=== PATIENT | male | born 1985 | race American Indian/Alaskan Native ===

== ENCOUNTER 2019-05-12 13:58 | Emergency (ER) | payer MEDICAID, OTHER ==
--- NOTE | 2019-05-12 14:21 | EDM.PDOC ---
ED HPI GENERAL MEDICAL PROBLEM - General Chief Complaint: Upper Extremity Injury/Pain Stated Complaint: AMBULANCE Time Seen by Provider: 05/12/19 14:00 Source of Information: Reports: Patient History Limitations: Reports: No Limitations - History of Present Illness INITIAL COMMENTS - FREE TEXT/NARRATIVE: This 34 yo male patient was sent to the ED by [facility] from the [facility] due to right wrist and hand pain. The patient reports he punched a wall last night at about 2200. The patient reports he woke up in increased pain. The patient was given an injection of Toradol while in the [facility] and placed in a sling for support. The patient reports increased pain in his wrist and the inability to straighten out his wrist at this time. 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 [No Known Home Meds] 12/15/15 [History] Past Medical History - Past Health History Medical/Surgical History: Denies Medical/Surgical History Social & Family History - Tobacco Use Smoking Status *Q: Current Every Day Smoker Years of Tobacco use: 12 Packs/Tins Daily: 1 - Recreational Drug Use Recreational Drug Use: No Review of Systems - Review of Systems Review Of Systems: ROS reveals no pertinent complaints other than HPI. ED EXAM, GENERAL - Physical Exam Exam: See Below Exam Limited By: No Limitations General Appearance: Alert, WD/WN, Moderate Distress Eye Exam: Bilateral Eye: EOMI, Normal Inspection, PERRL Ears: Normal External Exam, Normal Canal, Hearing Grossly Normal, Normal TMs Nose: Normal Inspection, Normal Mucosa, No Blood Throat/Mouth: Normal Inspection, Normal Lips, Normal Teeth, Normal Gums, Normal Oropharynx, Normal Voice, No Airway Compromise Head: Atraumatic, Normocephalic Neck: Normal Inspection, Supple, Non-Tender, Full Range of Motion Respiratory/Chest: No Respiratory Distress, Lungs Clear, Normal Breath Sounds, No Accessory Muscle Use, Chest Non-Tender Cardiovascular: Normal Peripheral Pulses, Regular Rate, Rhythm, No Edema, No Gallop, No JVD, No Murmur, No Rub GI/Abdominal: Normal Bowel Sounds, Soft, Non-Tender, No Organomegaly, No Distention, No Abnormal Bruit, No Mass (Male) Exam: Deferred Rectal (Males) Exam: Deferred Back Exam: Normal Inspection, Full Range of Motion, NT Extremities: Arm Pain (right wrist pain with swelling) Neurological: Alert, Oriented, CN II-XII Intact, Normal Cognition, Normal Gait, Normal Reflexes, No Motor/Sensory Deficits Psychiatric: Normal Affect, Normal Mood Skin Exam: Warm, Dry, Intact, Normal Color, No Rash Lymphatic: No Adenopathy Course - Vital Signs Last Recorded V/S: Last Vital Signs Temp 37.3 C 05/12/19 13:56 Pulse 97 05/12/19 13:56 Resp 16 05/12/19 13:56 BP 125/86 05/12/19 13:56 Pulse Ox 96 05/12/19 13:56 - Radiology Interpretation Free Text/Narrative:: No fracture and no dislocation read by Dr. Crocker. Departure - Departure Time of Disposition: 14:36 Disposition: Home, Self-Care 01 Condition: Fair Clinical Impression: Strain of right wrist Qualifiers: Encounter type: initial encounter Qualified Code(s): S66.911A - Strain of unspecified muscle, fascia and tendon at wrist and hand level, right hand, initial encounter - Discharge Information *PRESCRIPTION DRUG MONITORING PROGRAM REVIEWED*: Not Applicable *COPY OF PRESCRIPTION DRUG MONITORING REPORT IN PATIENT TAMI: Not Applicable Instructions: Wrist Splint, Adult, [id number], Wrist Sprain, Adult Forms: ED Department Discharge Care Plan Goals: The patient was advised of the examination and x-ray results during the visit. The patient was placed in a manufactured splint for his right wrist during the visit. If the patient has any additional symptoms or concerns, the patient should either return to the emergency department or visit his primary care facility.
--- NOTE | 2019-05-12 14:34 | CR ---
Clinical history: 34-year-old inebriated male who presents with flexion deformity right wrist, after "punching a wall". Interpretation: AP lateral views of the right wrist (identical comparisons contralateral, asymptomatic, left wrist). No sign of acute right wrist fracture or dislocation. Apparent old healed "boxer's" fracture deformities distal end of the fifth metacarpals, both hands. No foreign bodies.
== END 2019-05-12 15:00 | disposition home or self-care (01) ==
LOC: DL.ED 13:58
DX: S66.911A Strain of unspecified muscle, fascia and tendon at wrist and hand level, right hand, initial encounter (principal); F17.210 Nicotine dependence, cigarettes, uncomplicated; Z88.0 Allergy status to penicillin; W22.01XA Walked into wall, initial encounter
CPT/HCPCS: 73100-50; 99284-25

== ENCOUNTER 2019-08-07 16:24 | Emergency (ER) | payer MEDICAID ==
[2019-08-07] MEDS ORDERED: Sodium Chloride 0.9% 10 ML Syringe FLUSH PRN (16:29)
[2019-08-07] MEDS ORDERED: Sodium Chloride 0.9% 1,000 ML IV ONE ×2 (16:30→17:44)
--- NOTE | 2019-08-07 16:35 | EDM.PDOC ---
ED HPI GENERAL MEDICAL PROBLEM - General Chief Complaint: Possible Sepsis Time Seen by Provider: 08/07/19 16:34 Source of Information: Reports: Patient, EMS, EMS Notes Reviewed, Family, RN, RN Notes Reviewed History Limitations: Reports: Other (lethargy) - History of Present Illness INITIAL COMMENTS - FREE TEXT/NARRATIVE: Pt to ER per [facility] with c/o fever that began this AM. Pain to head/neck, generalized body aches. Denies health problems, denies drug or alcohol use. Admits to chest pains, SOB, nausea, vomiting, fever, chills, generalized body aches. Denies recent illness, cough, diarrhea. Denies any open sores. Onset: Today, Sudden - Related Data Allergies Allergy/AdvReac Type Severity Reaction Status Date / Time Penicillins Allergy Cannot Verified 05/12/19 14:08 Remember Home Meds: Home Meds . [No Known Home Meds] 12/15/15 [History] Past Medical History - Past Health History Medical/Surgical History: Denies Medical/Surgical History ED ROS GENERAL - Review of Systems Review Of Systems: ROS reveals no pertinent complaints other than HPI. ED EXAM, GENERAL - Physical Exam Exam: See Below Exam Limited By: Other (lethargy) General Appearance: Lethargic, Mild Distress Eye Exam: Bilateral Eye: EOMI, Normal Inspection Ears: Normal External Exam, Hearing Grossly Normal Nose: Normal Inspection Throat/Mouth: Normal Inspection, Normal Voice, No Airway Compromise Head: Atraumatic, Normocephalic Neck: Normal Inspection, Supple, Non-Tender, Full Range of Motion Respiratory/Chest: No Respiratory Distress, Lungs Clear, Normal Breath Sounds, No Accessory Muscle Use, Chest Non-Tender Cardiovascular: Normal Peripheral Pulses, Regular Rate, Rhythm, No Edema, No Gallop, No JVD, No Murmur, No Rub Peripheral Pulses: 2+: Radial (L), Radial (R) GI/Abdominal: Normal Bowel Sounds, Soft, Non-Tender, No Organomegaly, No Distention, No Abnormal Bruit, No Mass (Male) Exam: Deferred Rectal (Males) Exam: Deferred Back Exam: Normal Inspection, Full Range of Motion, NT Extremities: Normal Inspection, Normal Range of Motion, Non-Tender, Normal Capillary Refill, No Pedal Edema Neurological: Alert, Oriented, CN II-XII Intact, Normal Cognition, No Motor/ Sensory Deficits Psychiatric: Flat Affect Skin Exam: Warm, Dry, Intact, Normal Color, No Rash Lymphatic: No Adenopathy Course - Vital Signs Last Recorded V/S: Last Vital Signs Temp 99.3 F 08/07/19 18:14 Pulse 113 H 08/07/19 16:27 Resp 28 H 08/07/19 16:27 BP 107/61 08/07/19 16:27 Pulse Ox 96 08/07/19 16:27 - Orders/Labs/Meds Orders: Active Orders 24 hr Category Date Time Status Peripheral IV Care [RC] . DIRECTED Care 08/07/19 16:30 Active Chest 1V Frontal [CR] Stat Exams 08/07/19 16:29 Taken CULTURE BLOOD [BC] Stat Lab 08/07/19 16:34 Received CULTURE BLOOD [BC] Stat Lab 08/07/19 17:39 Received CULTURE STREP A CONFIRMATION [RM] Stat Lab 08/07/19 16:43 Results STREP SCRN A RAPID W CULT CONF [RM] Stat Lab 08/07/19 16:43 Results Sodium Chloride 0.9% [Saline Flush] Med 08/07/19 16:29 Active 10 ml FLUSH ASDIRECTED PRN Blood Culture x2 Reflex Set [OM.PC] Stat Oth 08/07/19 16:30 Ordered Peripheral IV Insertion Adult [OM.PC] Stat Oth 08/07/19 16:29 Ordered Medication Orders Sodium Chloride (Saline Flush) 10 ml FLUSH ASDIRECTED PRN PRN Reason: Keep Vein Open Last Admin: 08/07/19 17:31 Dose: 10 ml Labs: Laboratory Tests 08/07/19 08/07/19 08/07/19 Range/Units 16:34 16:34 16:34 WBC 5.7 (5.0-10.0) 10^3/uL RBC 4.23 L (4.6-6.2) 10^6/uL Hgb 13.1 L (14.0-18.0) g/dL Hct 39.5 L (40.0-54.0) % MCV 93.4 (80-100) fL MCH 31.0 (27.0-34.0) pg MCHC 33.2 (33.0-35.0) g/dL Plt Count 177 (150-450) 10^3/uL Neut % (Auto) 95.6 H (42.2-75.2) % Lymph % (Auto) 3.4 L (20.5-50.1) % Spalding % (Auto) 0.4 L (2-8) % Eos % (Auto) 0.4 L (1.0-3.0) % Baso % (Auto) 0.2 (0.0-1.0) % ESR 6 (0-15) mm/hr Sodium 139 (135-145) mmol/L Potassium 3.1 L (3.6-5.0) mmol/L Chloride 107 (101-111) mmol/L Carbon Dioxide 25.0 (21.0-31.0) mmol/L Anion Gap 10.1 BUN 12 (7-18) mg/dL Creatinine 0.9 (0.6-1.3) mg/dL Est Cr Clr Drug Dosing 84.30 mL/min Estimated GFR (MDRD) > 60 BUN/Creatinine Ratio 13.33 Glucose 101 (74-105) mg/dL Lactic Acid (0.5-2.2) mmol/L Calcium 8.2 L (8.4-10.2) mg/dl Total Bilirubin 1.0 (0.2-1.0) mg/dL AST 126 H (10-42) IU/L ALT 64 H (10-60) IU/L Alkaline Phosphatase 75 (42-121) IU/L C-Reactive Protein < 0.5 (0.0-1.3) mg/dL Total Protein 6.2 L (6.7-8.2) g/dl Albumin 3.3 (3.2-5.5) g/dl Globulin 2.9 Albumin/Globulin Ratio 1.14 Urine Color (YELLOW) Urine Appearance (CLEAR) Urine pH (5.0-9.0) Ur Specific Vaughn (1.005-1.030) Urine Protein (NEGATIVE) Urine Glucose (UA) (NEGATIVE) Urine Ketones (NEGATIVE) Urine Occult Blood (NEGATIVE) Urine Nitrite (NEGATIVE) Urine Bilirubin (NEGATIVE) Urine Urobilinogen (0.2-1.0) mg/dL Ur Leukocyte Esterase (NEGATIVE) Urine Opiates Screen (NEGATIVE) Ur Oxycodone Screen (NEGATIVE) Urine Methadone Screen (NEGATIVE) Ur Barbiturates Screen (NEGATIVE) U Tricyclic Antidepress (NEGATIVE) Ur Phencyclidine Scrn (NEGATIVE) Ur Amphetamine Screen (NEGATIVE) U Methamphetamines Scrn (NEGATIVE) Urine MDMA Screen (NEGATIVE) U Benzodiazepines Scrn (NEGATIVE) Urine Cocaine Screen (NEGATIVE) U Marijuana (THC) Screen (NEGATIVE) Ethyl Alcohol < 5 mg/dL 08/07/19 08/07/19 08/07/19 Range/Units 16:34 17:00 17:00 WBC (5.0-10.0) 10^3/uL RBC (4.6-6.2) 10^6/uL Hgb (14.0-18.0) g/dL Hct (40.0-54.0) % MCV (80-100) fL MCH (27.0-34.0) pg MCHC (33.0-35.0) g/dL Plt Count (150-450) 10^3/uL Neut % (Auto) (42.2-75.2) % Lymph % (Auto) (20.5-50.1) % Spalding % (Auto) (2-8) % Eos % (Auto) (1.0-3.0) % Baso % (Auto) (0.0-1.0) % ESR (0-15) mm/hr Sodium (135-145) mmol/L Potassium (3.6-5.0) mmol/L Chloride (101-111) mmol/L Carbon Dioxide (21.0-31.0) mmol/L Anion Gap BUN (7-18) mg/dL Creatinine (0.6-1.3) mg/dL Est Cr Clr Drug Dosing mL/min Estimated GFR (MDRD) BUN/Creatinine Ratio Glucose (74-105) mg/dL Lactic Acid 1.5 (0.5-2.2) mmol/L Calcium (8.4-10.2) mg/dl Total Bilirubin (0.2-1.0) mg/dL AST (10-42) IU/L ALT (10-60) IU/L Alkaline Phosphatase (42-121) IU/L C-Reactive Protein (0.0-1.3) mg/dL Total Protein (6.7-8.2) g/dl Albumin (3.2-5.5) g/dl Globulin Albumin/Globulin Ratio Urine Color Yellow (YELLOW) Urine Appearance Clear (CLEAR) Urine pH 6.0 (5.0-9.0) Ur Specific Vaughn 1.010 (1.005-1.030) Urine Protein Negative (NEGATIVE) Urine Glucose (UA) Negative (NEGATIVE) Urine Ketones Negative (NEGATIVE) Urine Occult Blood Negative (NEGATIVE) Urine Nitrite Negative (NEGATIVE) Urine Bilirubin Negative (NEGATIVE) Urine Urobilinogen 1.0 (0.2-1.0) mg/dL Ur Leukocyte Esterase Negative (NEGATIVE) Urine Opiates Screen Negative (NEGATIVE) Ur Oxycodone Screen Negative (NEGATIVE) Urine Methadone Screen Negative (NEGATIVE) Ur Barbiturates Screen Negative (NEGATIVE) U Tricyclic Antidepress Negative (NEGATIVE) Ur Phencyclidine Scrn Negative (NEGATIVE) Ur Amphetamine Screen Positive H (NEGATIVE) U Methamphetamines Scrn Positive H (NEGATIVE) Urine MDMA Screen Negative (NEGATIVE) U Benzodiazepines Scrn Negative (NEGATIVE) Urine Cocaine Screen Negative (NEGATIVE) U Marijuana (THC) Screen Negative (NEGATIVE) Ethyl Alcohol mg/dL Rapid Strep: Negative Influenza A & B: Negative Meds: Medications Generic Name Dose Route Start Last Admin Trade Name Freq PRN Reason Stop Dose Admin Sodium Chloride 10 ml 08/07/19 16:29 08/07/19 17:31 Saline Flush FLUSH 10 ml ASDIRECTED PRN Administration Keep Vein Open Discontinued Medications Generic Name Dose Route Start Last Admin Trade Name Freq PRN Reason Stop Dose Admin Sodium Chloride 1,000 mls @ 999 mls/hr 08/07/19 16:30 08/07/19 16:36 Normal Saline IV 08/07/19 17:30 999 mls/hr .BOLUS ONE Administration Sodium Chloride 1,000 mls @ 999 mls/hr 08/07/19 17:44 08/07/19 17:53 Normal Saline IV 08/07/19 18:44 999 mls/hr .BOLUS ONE Administration Ibuprofen 800 mg 08/07/19 17:05 08/07/19 17:14 Motrin PO 08/07/19 17:06 800 mg ONETIME ONE Administration Potassium Chloride 40 meq 08/07/19 17:44 08/07/19 17:55 Klor-Con 10 PO 08/07/19 17:45 40 meq ONETIME ONE Administration - Radiology Interpretation Free Text/Narrative:: Chest xray: FINDINGS: Lungs: Unremarkable. No consolidation. Pleural space: Unremarkable. No pleural effusion. No pneumothorax. Heart/Mediastinum: Unremarkable. No cardiomegaly. Bones/joints: Unremarkable. IMPRESSION: No acute findings. Thank you for allowing us to participate in the care of your patient. Dictated and Authenticated by: Kashif Davidson MD 08/07/2019 5:05 PM Central Time ([place] & [place]) See rad report Departure - Departure Time of Disposition: 18:46 Disposition: Home, Self-Care 01 Condition: Fair Clinical Impression: Viral illness - Discharge Information *PRESCRIPTION DRUG MONITORING PROGRAM REVIEWED*: No *COPY OF PRESCRIPTION DRUG MONITORING REPORT IN PATIENT TAMI: No Instructions: Viral Illness, Adult, Fever, Adult Forms: ED Department Discharge Additional Instructions: Alternate tylenol and/or ibuprofen as directed for fever and pain drink plenty of fluids follow up with your primary care facility rest - My Orders Last 24 Hours: My Active Orders 08/07/19 16:29 Chest 1V Frontal [CR] Stat Sodium Chloride 0.9% [Saline Flush] 10 ml FLUSH ASDIRECTED PRN Peripheral IV Insertion Adult [OM.PC] Stat 08/07/19 16:30 Peripheral IV Care [RC] . DIRECTED Blood Culture x2 Reflex Set [OM.PC] Stat 08/07/19 16:34 CULTURE BLOOD [BC] Stat 08/07/19 16:43 CULTURE STREP A CONFIRMATION [RM] Stat STREP SCRN A RAPID W CULT CONF [RM] Stat 08/07/19 17:39 CULTURE BLOOD [BC] Stat - Assessment/Plan Last 24 Hours: My Active Orders 08/07/19 16:29 Chest 1V Frontal [CR] Stat Sodium Chloride 0.9% [Saline Flush] 10 ml FLUSH ASDIRECTED PRN Peripheral IV Insertion Adult [OM.PC] Stat 08/07/19 16:30 Peripheral IV Care [RC] . DIRECTED Blood Culture x2 Reflex Set [OM.PC] Stat 08/07/19 16:34 CULTURE BLOOD [BC] Stat 08/07/19 16:43 CULTURE STREP A CONFIRMATION [RM] Stat STREP SCRN A RAPID W CULT CONF [RM] Stat 08/07/19 17:39 CULTURE BLOOD [BC] Stat
[2019-08-07 17:05] LABS: ANION GAP 10.1; CHLORIDE,CL 107 mmol/L (101-111); SODIUM,NA 139 mmol/L (135-145)
[2019-08-07] MEDS ORDERED: Ibuprofen 800 MG Tab PO ONE (17:05)
[2019-08-07] MEDS ORDERED: Potassium Chloride 10 MEQ Tab.ER PO ONE (17:44)
== END 2019-08-07 18:53 | disposition home or self-care (01) ==
LOC: DL.ED 16:24
DX: B34.9 Viral infection, unspecified (principal); Z88.0 Allergy status to penicillin
CPT/HCPCS: 36415; 71045; 80053; 80305; 80320; 81003; 83605; 85025; 85651; 86140; 87040; 87081; 87430; 87804; 96360; 96361; 99284; A9270; J7030; G0480

== ENCOUNTER 2023-04-30 17:45 | Emergency (ER) | payer MEDICAID ==
[2023-04-30] MEDS ORDERED: HYDROmorphone 1 MG/ML Syringe IVPUSH ONE (19:39)
[2023-04-30] MEDS: Sodium Chloride 0.9% 10 ML Syringe FLUSH PRN ×2 (19:43→19:46)
== END 2023-04-30 20:13 ==
LOC: DL.ED 17:45
DX: S02.609A Fracture of mandible, unspecified, initial encounter for closed fracture (principal); Z88.0 Allergy status to penicillin; Y04.0XXA Assault by unarmed brawl or fight, initial encounter
CPT/HCPCS: 70450; 70486; 72125; 96374; 99282; 99285-25; J1170; J3490